=== PATIENT | female | born 2000 | race Caucasian/White ===

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

== ENCOUNTER 2018-04-06 15:03 | Observation (INO) ==
[2018-04-06] MEDS: NORMAL SALINE 1,000 ML IV ONE ×2 (15:45→16:46)
[2018-04-06] MEDS ORDERED: ADENOSINE 3 MG/ML DISP.SYRIN IV ONE ×2 (15:49)
[2018-04-06] MEDS ORDERED: MAGNESIUM SULFATE IN WATER 50 ML IV ONE (15:51)
[2018-04-06] MEDS ORDERED: ACETAMINOPHEN 500 MG TABLET PO ONE ×2 (16:02→16:03)
[2018-04-06 16:05] LABS: Hematocrit 34.4 % (37.0-47.0); Hemoglobin 11.6 gm/dL (12.5-16.0); Mean Cell Volume 88.9 fl (78-100); Mean Corpuscular Hgb Conc 33.7 g/dl (32-36); Mean Platelet Volume 9.2 fl (8-12.5); Neutrophil # 8.2 K/mm3 (1.3-6.0); Neutrophil % 88.6 % (42-75.0); Platelet Count 244 K/mm3 (150-450); Red Blood Count 3.87 M/mm3 (4.2-5.4); Red Cell Distribution Width 13.2 % (11.5-14.0); White Blood Count 9.2 K/mm3 (4.0-10.5)
[2018-04-06 16:27] LABS: ALT 26 U/L (19-67); AST 24 U/L (0-48); Albumin * 2.5 gm/dl (3.4-5.0); Alkaline Phosphatase * 153 U/L (50-170); Anion Gap 16.7 mmol/L (6.8-13.8); BUN/Creatinine Ratio 5.4 (9.0-21.6); Bilirubin, Total 0.4 mg/dL (0.0-1.1); Blood Urea Nitrogen 3 mg/dL (3-23); Ca. Corrected For Albumin 9.7 mg/dL (8.4-10.2); Calcium * 8.8 mg/dL (7.9-10.9); Carbon Dioxide 21.9 mmol/L (24-32.6); Chloride 104 mmol/L (97-106); Glucose * 84 mg/dL (70-110); Magnesium 1.3 mg/dL (1.2-2.8); Potassium 3.6 mmol/L (3.4-4.6); Sodium 139 mmol/L (132-142); Total Protein 6.6 gm/dL (6.2-8.2); Troponin I Less than 0.017 ng/mL (0.00-0.10)
[2018-04-06] MEDS ORDERED: NORMAL SALINE 1,000 ML IV ONE ×2 (16:43→17:47)
[2018-04-06 18:06] LABS: Urine Bilirubin Negative (NEGATIVE); Urine Ketone 50 mg/dL (NEGATIVE); Urine Nitrite Negative (NEGATIVE); Urine Protein Negative (NEGATIVE); Urine Urobilinogen Normal (NORMAL)
[2018-04-06 18:18] LABS: Urine Appearance Clear (CLEAR); Urine Bacteria TRACE; Urine Blood 5 /ul (NEGATIVE); Urine Color Yellow; Urine Mucus Moderate - 2+; Urine RBC 0-5 /hpf (0-5); Urine WBC 0-5 /hpf (0-5)
[2018-04-06] MEDS ORDERED: SULFAMETHOXAZOLE/TRIMETHOPRIM 1 TAB TABLET PO ONE (18:24)
--- NOTE | 2018-04-06 18:31 | ERNOTE ---
<Dl Paris - Last Filed: 04/06/18 19:47> Medical Problem HPI - General Chief Complaint: Nausea/Vomiting Time Seen by Provider: 04/06/18 15:25 Source: patient Exam Limitations: no limitations - Immun/Allergies/Home Medications Immunizations: IMMUNIZATION HX Immunizations Up to Date Yes History of Influenza Vaccine No Hx Pneumococcal Vaccination No Allergies/Adverse Reactions: Allergies No Known Allergies Allergy (Verified 04/06/18 16:16) Home Medications: HOME MEDICATIONS vitamin,calcium,elimfust-xgfb-ehhsl acid tablet 1 tab PO DAILY 11/08/17 [Last Taken Unknown] ferrous sulfate 325 mg (65 mg iron) tablet 325 mg PO DAILY #30 tab 03/06/18 [Last Taken Unknown] ascorbic acid (vitamin C) 500 mg capsule 500 mg PO DAILY cap 03/13/18 [Last Taken Unknown] acetaminophen 325 mg tablet 325 mg PO Q6H PRN 03/27/18 [Last Taken Unknown] calcium carbonate 200 mg calcium (500 mg) chewable tablet 400 mg PO DAILY tab 03/27/18 [Last Taken Unknown] melatonin 10 mg tablet 10 mg PO HS 03/27/18 [Last Taken Unknown] clindamycin HCl 150 mg capsule 150 mg PO TID #20 cap 04/06/18 [Last Taken Unknown] - History of Present History Narrative: Patient presents with a fever, rapidly elevated heart rate and feelings of nausea with vomiting. She states onset of the symptoms has been over the past hour, as she just had a cyst taken off her tailbone by the surgeon. Timing: constant Severity: moderate Review of Systems - Review of Systems Constitutional: Present: See HPI EYE: Present: no symptoms reported ENT: Present: no symptoms reported Respiratory: Present: no symptoms reported Cardiology: Present: palpitations Gastrointestinal/Abdominal: Present: no symptoms reported Genitourinary: Present: no symptoms reported Musculoskeletal: Present: no symptoms reported Skin: Present: no symptoms reported Neurological: Present: no symptoms reported Endocrine: Present: no symptoms reported Hematologic/Lymphatic: Present: no symptoms reported Psych: Present: no symptoms reported Medical History (Last Reviewed 04/06/18 @ 16:16 by Kenan Morris RN) Has received influenza vaccination in current influenza season (Acute) Onset Date: 03/13/18 Cellulitis (Acute) Abscess of gluteal cleft (Acute) Influenza vaccine refused (Acute) Onset Date: 12/06/17 Strep pharyngitis (Acute) Bleeding from the nose (Acute) Common cold (Acute) Constipation (Acute) Strep pharyngitis (Acute) Vomiting (Acute) Crush injury to finger (Acute) Pneumonia (Acute) Sinusitis (Acute) Abscess Onset Date: 01/03/18 Gluteal cleft Anemia Onset Date: 03/06/18 w/ Acne Onset Date: Unknown Anxiety Onset Date: Unknown Depression Onset Date: Unknown MRSA Abscess Onset Date: Unknown Herpes simplex Onset Date: 08/12/12 Surgical History: Surgical History (Last Reviewed 04/06/18 @ 16:16 by Kenan Morris RN) History of incision and drainage Onset Date: 03/27/1812/2017 gluteal cleft. 03/27/18 in ER-gluteal cleft History of neck surgery Onset Date: ~2005 Cyst removal Family History: Family History (Last Reviewed 04/06/18 @ 16:16 by Kenan Morris RN) Mother Alive and well Father Unknown family medical history Grandfather COPD (chronic obstructive pulmonary disease) Grandmother Cancer Cervical Cancer Diabetes Brain tumor Colostomy in place Complication d/t radiation therapy-Part of intestines killed Status post emergency tracheotomy for assistance in breathing Trachea collapsed d/t sepsis Brother Alive and well 2 brothers Social History: Preferred Language Swedish Do you have any catholic or No cultural preference? Smoking Status Never smoker Abuse History No History of abuse Psych History Hx of Anxiety,Hx of Depression Alcohol Use none Drug Use none (Last Updated 04/06/18 @ 12:15 by Fifi Christensen DO) No Social History Section defined Physical Exam - Physical Exam General Appearance: Present: wd/wn, alert, moderate distress Head Exam: Present: normal inspection, no evidence of injury Eye Exam: Normal inspection: bilateral, PERRL: bilateral Ears, Nose, Throat: Present: normal pharynx, dry mucous membranes Neck: Present: normal inspection, nontender Respiratory: Present: no respiratory distress, normal breath sounds, no accessory muscle use, chest nontender, lungs clear Cardiovascular/Chest: Present: no murmur, normal peripheral pulses, tachycardia Gastrointestinal/Abdominal: Present: normal bowel sounds, nontender, nondistended, soft, no organomegaly Rectal Exam: Present: deferred Back Exam: Present: normal inspection, normal range of motion Extremity Exam: Present: normal inspection, non-tender, no edema, normal range o f motion Neurological Exam: Present: alert, oriented, normal mood/affect Skin Exam: Present: normal color, warm/dry Lymphatic Exam: Present: no adenopathy Progress - Results and Orders Patient's Lab Results:: I have reviewed the patient's lab results. - Vital Signs Patient's Vital Signs:: I have reviewed the patient's vital signs. Vital Signs: Vital Signs 04/06/18 15:17 04/06/18 15:58 04/06/18 16:15 Temperature 36.8 C 38.8 C H Pulse Rate 175 H 149 H 150 H Respiratory Rate 24 H 25 H 23 H Blood Pressure 112/58 104/51 108/48 O2 Sat by Pulse Oximetry 98 99 98 04/06/18 16:34 04/06/18 16:45 04/06/18 17:39 Temperature Pulse Rate 124 H 138 H 124 H Respiratory Rate 21 H 17 18 Blood Pressure 92/30 107/46 124/57 O2 Sat by Pulse Oximetry 98 98 97 04/06/18 18:15 Temperature 37 C Pulse Rate 118 H Respiratory Rate 20 Blood Pressure 114/44 O2 Sat by Pulse Oximetry 96 - CT/Ultrasound CT/Ultrasound Narrative: CT of the chest was reviewed and was negative for PE - Progress/Reassessment Chief Complaint: Nausea/Vomiting - Transfer of Care Physician Sign Out: Dl Paris Receiving Physician: Prudence Stout Expected Disposition: Discharge Plan - Plan Plan: Patient is on her third liter of saline her heart rate has come down to approximately 115. She was also given 1 g of Tylenol and her fever broke and she feels much better. She has had a history of community-acquired MRSA so she is given 1 Bactrim DS. While she was and emergency department she had several contractions, so we will send her over to OB for an NST. Patient was also given 4 g of magnesium sulfate while she is in the emergency department. Departure Clinical Impression: Tachycardia, Hypovolemia, Pre-syncope Fever Qualifiers: Fever type: post-procedural Qualified Code(s): R50.82 - Postprocedural fever Qualifiers: Weeks of gestation: 32 weeks Qualified Code(s): Z3A.32 - 32 weeks gestation of - Departure Disposition: Still a patient Condition: Fair Referrals: Teresa Omalley, KO [Primary Care Provider] - <Prudence Stout - Last Filed: 04/06/18 21:28> Medical Problem HPI - Immun/Allergies/Home Medications Immunizations: IMMUNIZATION HX Immunizations Up to Date Yes History of Influenza Vaccine No Hx Pneumococcal Vaccination No Medical History (Last Reviewed 04/06/18 @ 16:16 by Kenan Morris RN) Has received influenza vaccination in current influenza season (Acute) Onset Date: 03/13/18 Cellulitis (Acute) Abscess of gluteal cleft (Acute) Influenza vaccine refused (Acute) Onset Date: 12/06/17 Strep pharyngitis (Acute) Bleeding from the nose (Acute) Common cold (Acute) Constipation (Acute) Strep pharyngitis (Acute) Vomiting (Acute) Crush injury to finger (Acute) Pneumonia (Acute) Sinusitis (Acute) Abscess Onset Date: 01/03/18 Gluteal cleft Anemia Onset Date: 03/06/18 w/ Acne Onset Date: Unknown Anxiety Onset Date: Unknown Depression Onset Date: Unknown MRSA Abscess Onset Date: Unknown Herpes simplex Onset Date: 08/12/12 Surgical History: Surgical History (Last Reviewed 04/06/18 @ 16:16 by Kenan Morris RN) History of incision and drainage Onset Date: 03/27/1812/2017 gluteal cleft. 03/27/18 in ER-gluteal cleft History of neck surgery Onset Date: ~2005 Cyst removal Family History: Family History (Last Reviewed 04/06/18 @ 16:16 by Kenan Morris RN) Mother Alive and well Father Unknown family medical history Grandfather COPD (chronic obstructive pulmonary disease) Grandmother Cancer Cervical Cancer Diabetes Brain tumor Colostomy in place Complication d/t radiation therapy-Part of intestines killed Status post emergency tracheotomy for assistance in breathing Trachea collapsed d/t sepsis Brother Alive and well 2 brothers Social History: Preferred Language Swedish Do you have any catholic or No cultural preference? Smoking Status Former smoker Abuse History No History of abuse Psych History Hx of Anxiety,Hx of Depression Alcohol Use none Drug Use none (Last Updated 04/06/18 @ 12:15 by Fifi Christensen DO) No Social History Section defined Progress - Vital Signs Vital Signs: Vital Signs 04/06/18 15:17 04/06/18 15:58 04/06/18 16:15 Temperature 36.8 C 38.8 C H Pulse Rate 175 H 149 H 150 H Respiratory Rate 24 H 25 H 23 H Blood Pressure 112/58 104/51 108/48 O2 Sat by Pulse Oximetry 98 99 98 04/06/18 16:34 04/06/18 16:45 04/06/18 17:39 Temperature Pulse Rate 124 H 138 H 124 H Respiratory Rate 21 H 17 18 Blood Pressure 92/30 107/46 124/57 O2 Sat by Pulse Oximetry 98 98 97 04/06/18 18:15 04/06/18 18:30 04/06/18 18:45 Temperature 37 C 37.5 C Pulse Rate 118 H 115 H 117 H Respiratory Rate 20 Blood Pressure 114/44 100/35 99/41 O2 Sat by Pulse Oximetry 96 99 98 04/06/18 19:00 04/06/18 19:15 04/06/18 19:27 Temperature Pulse Rate 120 H 118 H Respiratory Rate Blood Pressure 100/46 80/30 L 84/46 L O2 Sat by Pulse Oximetry 98 98 04/06/18 19:45 Temperature 37.6 C Pulse Rate 122 H Respiratory Rate 22 H Blood Pressure 109/45 O2 Sat by Pulse Oximetry 98 Plan - Plan Plan: I took over for Dr. Paris, patient is awaiting CT scan results, she has mild abdominal pain, she did have adenosine twice in ER. Patient was in PSVT. Patient will be admitted to Dr. Lowery for observation. She did receive three liters of IVF. She has a history of community acquired pneumonia one year ago, she did receive one dose of Bactrim due to cyst abscess on back that was drained. She is 32 weeks gestation and ultrasound is negative.
[2018-04-06] MEDS ORDERED: ACETAMINOPHEN 325 MG TABLET PO ONE (22:02)
[2018-04-06] MEDS ORDERED: CALCIUM CARBONATE 500 MG TAB.CHEW ONE (22:04)
[2018-04-06] MEDS: CALCIUM CARBONATE 500 MG TAB.CHEW PO SCH (22:07)
[2018-04-06] MEDS: NORMAL SALINE 1,000 ML IV PRN (22:45)
[2018-04-07] MEDS ORDERED: CALCIUM CARBONATE 500 MG TAB.CHEW PO PRN (02:15)
[2018-04-07] MEDS: ACETAMINOPHEN 325 MG TABLET PO PRN ×2 (04:52→11:10)
[2018-04-07 06:05] LABS: Hematocrit 28.2 % (37.0-47.0); Hemoglobin 9.5 gm/dL (12.5-16.0); Mean Cell Volume 88.4 fl (78-100); Mean Corpuscular Hemoglobin 29.8 pg (27-31); Mean Corpuscular Hgb Conc 33.7 g/dl (32-36); Mean Platelet Volume 9.2 fl (8-12.5); Neutrophil # 10.8 K/mm3 (1.3-6.0); Platelet Count 214 K/mm3 (150-450); Red Blood Count 3.19 M/mm3 (4.2-5.4); Red Cell Distribution Width 13.2 % (11.5-14.0); White Blood Count 12.1 K/mm3 (4.0-10.5)
[2018-04-07] MEDS: NORMAL SALINE 1,000 ML IV PRN ×2 (06:33→15:30)
[2018-04-07] MEDS: CALCIUM CARBONATE 500 MG TAB.CHEW PO SCH (08:17)
[2018-04-07] MEDS ORDERED: SULFAMETHOXAZOLE/TRIMETHOPRIM 1 TAB TABLET PO SCH (09:00)
--- NOTE | 2018-04-07 12:12 | CONS ---
- Reason for consultation (1) Abscess Date of Service: 04/07/18 HPI - General Source: patient, family, RN/MD, RN notes reviewed, old records Exam Limitations: no limitations - History of Present Illness Initial Comments: She had I&D of an abscess over the sacrum yesterday. Iodoform wick placed. Had chills and tachycardia later in the day and presented to ER. NST has been normal. Chest CT negative for PE. She had I&D in the same area last fall and again in February. The current opening is too small to allow easy wound care Modifying Factors - (Worsens): Reports: other - sitting Modifying Factors - (Improves): Reports: immobilization Associated Symptoms: fever/chills, other - tachycardia Allergies/Adverse Reactions: Allergies No Known Allergies Allergy (Verified 04/06/18 16:16) Home Medications: Home Medications Medication Instructions Recorded Last Taken 1 tab PO DAILY 11/08/17 Unknown vitamin,calcium,yeefxtir-zzjn-wcsdt acid tablet ferrous sulfate 325 mg (65 mg 325 mg PO DAILY #30 tab 03/06/18 Unknown iron) tablet ascorbic acid (vitamin C) 500 mg 500 mg PO DAILY cap 03/13/18 Unknown capsule acetaminophen 325 mg tablet 325 mg PO Q6H PRN 03/27/18 Unknown calcium carbonate 200 mg calcium 400 mg PO DAILY tab 03/27/18 Unknown (500 mg) chewable tablet melatonin 10 mg tablet 10 mg PO HS 03/27/18 Unknown clindamycin HCl 150 mg capsule 150 mg PO TID #20 cap 04/06/18 Unknown Procedures Drainage of Buttock Skin, External Approach (03/27/18) Removal of intraluminal foreign body from nose without incision (11/01/00) Medications - Medications Current Medications: Current Medications Acetaminophen (Tylenol) 650 mg PO Q6H PRN PRN Reason: Mild pain (pain scale 1-3) Stop: 05/07/18 04:44 Last Admin: 04/07/18 11:10 Dose: 650 mg Documented by: Calcium Carbonate/Glycine (Tums) 500 mg PO DAILY CORA Stop: 05/07/18 09:01 Last Admin: 04/07/18 08:17 Dose: 500 mg Documented by: Sodium Chloride (Sodium Chloride 0.9%) 1,000 mls @ 125 mls/hr IV .Q8H PRN PRN Reason: HYDRATION Stop: 05/06/18 21:43 Last Admin: 04/07/18 06:33 Dose: 125 mls/hr Documented by: Trimethoprim/Sulfamethoxazole (Bactrim Ds) 1 tab PO BID CORA; Protocol Stop: 05/07/18 09:01 Last Admin: 04/07/18 08:17 Dose: 1 tab Documented by: Review of Systems - Review of Systems Generalized/Overall Review: Present: Chills, Malaise EENTM: Present: No Symptoms Reported Respiratory: Absent: Shortness of Breath Cardiac: Present: Other - rapid heartrate Abdominal: Present: Other - discomfort from Genitourinary: Present: No Symptoms Reported Musculoskeletal: Present: No Symptoms Reported Neurological: Present: No Symptoms Reported Skin: Present: Other - acne and multiple areas of folliculitis. Pain over sacrum Physical Examination - Exam Vital Signs: Vital Signs - Last Taken Temp 37.0 C 04/07/18 10:14 Pulse 112 H 04/07/18 10:14 Resp 12 04/07/18 10:14 BP 108/47 04/07/18 10:14 Pulse Ox 97 04/07/18 10:14 O2 Oxygen Delivery Method Room Air Constitutional: Present: Alert, Oriented x3, Cooperative, Well nourished, Mild distress ENT Exam: Present: normal ENT inspection, other - poor dentition, Mallampati 3 airway Eye Exam: bilateral eye: normal inspection Neck: Present: full range of motion Breasts: Present: Exam deferred Respiratory: Present: normal breath sounds Cardiovascular/Chest: Present: normal peripheral pulses, regular rate, rhythm Abdomen: Present: other - , otherwise soft /Rectal: Present: Exam deferred Extremity: Present: normal range of motion, no pedal edema, no calf tenderness Skin Exam: Present: pallor, other - abscess in midline over sacrum (appears to be pilonidal cyst) Neurologic: Present: shopping centre manager II-XII nml as tested, no motor/sensory deficits Appearance: Present: appropriate appearance, appropriate insight Eye contact: Present: cooperative, good eye contact, normal speech Thoughts: Present: normal thought pattern - Results and Findings: Lab/Microbiology results last 24 hrs: Abnormal/Pending Laboratory Last 24 HRS 04/07/18 04/06/18 04/06/18 06:00 17:38 15:59 WBC 12.1 H D RBC 3.19 L Hgb 9.5 L Hct 28.2 L Immature Gran % (Auto) 0.80 H Immature Gran # (Auto) 0.10 H Neutrophils % 89.0 H Lymphocytes % 4.3 L Neutrophils # 10.8 H Lymphocytes # 0.52 L D-Dimer 7.00 H Carbon Dioxide Anion Gap Est GFR (Non-Af Amer) BUN/Creatinine Ratio Albumin Urine Blood 5 H Urine Mucus Moderate - 2+ H 04/06/18 04/06/18 15:59 15:59 WBC RBC 3.87 L Hgb 11.6 L Hct 34.4 L Immature Gran % (Auto) 0.50 H Immature Gran # (Auto) 0.05 H Neutrophils % 88.6 H Lymphocytes % 9.0 L Neutrophils # 8.2 H Lymphocytes # 0.83 L D-Dimer Carbon Dioxide 21.9 L Anion Gap 16.7 H Est GFR (Non-Af Amer) 148 H D BUN/Creatinine Ratio 5.4 L Albumin 2.5 L Urine Blood Urine Mucus - Assessments/Findings (1) Abscess Diagnosis(s): This may be a pilonidal abscess given the location and history of recurrence. the current opening is not sufficient to allow the cavity to be packed. Explained this to the patient and what would be involved in openning the area further under local anesthesia. Risks and benfits and expected future wound care explained. Questions answered to her apparent satisfaction and informed consent obtained for I&D of the abscess. Problem: Acute
--- NOTE | 2018-04-07 12:24 | HP ---
Chief Complaint - Chief Complaint Date of Service: 04/07/18 Time of Service: 12:14 Chief Complaint: tachycardia History of Present Illness: 17-year-old female presents with complaints of fever and elevated heart rate. Associated with symptoms of nausea and vomiting. She has a history of a lesion located that was her tailbone that was incised and drained 1 day prior and she had been started on Bactrim as outpatient. She was found to have SVT in the emergency department with heart rate in the 170s. She was given adenosine with good response. In the emergency department she received 4 g of magnesium sulfate. She was admitted for observation. Medical History (Last Reviewed 04/06/18 @ 23:00 by Tawana Mak RN) Has received influenza vaccination in current influenza season (Acute) Onset Date: 03/13/18 Cellulitis (Acute) Abscess of gluteal cleft (Acute) Influenza vaccine refused (Acute) Onset Date: 12/06/17 Strep pharyngitis (Acute) Bleeding from the nose (Acute) Common cold (Acute) Constipation (Acute) Strep pharyngitis (Acute) Vomiting (Acute) Crush injury to finger (Acute) Pneumonia (Acute) Sinusitis (Acute) Abscess Onset Date: 01/03/18 Gluteal cleft Anemia Onset Date: 03/06/18 w/ Acne Onset Date: Unknown Anxiety Onset Date: Unknown Depression Onset Date: Unknown MRSA Abscess Onset Date: Unknown Herpes simplex Onset Date: 08/12/12 Surgical History: Surgical History (Last Reviewed 04/06/18 @ 23:00 by Tawana Mak RN) History of incision and drainage Onset Date: 03/27/1812/2017 gluteal cleft. 03/27/18 in ER-gluteal cleft History of neck surgery Onset Date: ~2005 Cyst removal Family History: Family History (Last Reviewed 04/06/18 @ 23:00 by Tawana Mak RN) Mother Alive and well Father Unknown family medical history Grandfather COPD (chronic obstructive pulmonary disease) Grandmother Cancer Cervical Cancer Diabetes Brain tumor Colostomy in place Complication d/t radiation therapy-Part of intestines killed Status post emergency tracheotomy for assistance in breathing Trachea collapsed d/t sepsis Brother Alive and well 2 brothers Social History: Patient Lives/Resources Home Utilized Occupation [employer] Preferred Language Latvian Do you have any episcopalian or No cultural preference? Smoking Status Former smoker Have you smoked in the past 12 Yes months Abuse History No History of abuse Psych History Hx of Anxiety,Hx of Depression Alcohol Use none Drug Use none (Last Updated 04/06/18 @ 12:15 by Fifi Christensen DO) No Social History Section defined Review Of Systems (GEN) - Review of Systems Generalized/Overall Review: Present: Fever Respiratory: Absent: Shortness of Breath Cardiac: Absent: Chest Pain Abdominal: Present: Abdominal Pain Skin: Present: Lesions - Abscess sacral region. Misc: All systems neg except as marked Immunizations: IMMUNIZATION HX Immunizations Up to Date Yes History of Influenza Vaccine No Hx Pneumococcal Vaccination No Allergies/Adverse Reactions: Allergies Allergy/AdvReac Type Severity Reaction Status Date / Time No Known Allergies Allergy Verified 04/06/18 16:16 Home Medications: HOME MEDICATIONS vitamin,calcium,ylefsaze-xirt-uhaus acid tablet 1 tab PO DAILY 11/08/17 [Last Taken Unknown] ferrous sulfate 325 mg (65 mg iron) tablet 325 mg PO DAILY #30 tab 03/06/18 [Last Taken Unknown] ascorbic acid (vitamin C) 500 mg capsule 500 mg PO DAILY cap 03/13/18 [Last Taken Unknown] acetaminophen 325 mg tablet 325 mg PO Q6H PRN 03/27/18 [Last Taken Unknown] calcium carbonate 200 mg calcium (500 mg) chewable tablet 400 mg PO DAILY tab 03/27/18 [Last Taken Unknown] melatonin 10 mg tablet 10 mg PO HS 03/27/18 [Last Taken Unknown] clindamycin HCl 150 mg capsule 150 mg PO TID #20 cap 04/06/18 [Last Taken Unknown] Exam - Exam Vital Signs: Vital Signs - Last Taken Temp 37.0 C 04/07/18 10:14 Pulse 112 H 04/07/18 10:14 Resp 12 04/07/18 10:14 BP 108/47 04/07/18 10:14 Pulse Ox 97 04/07/18 10:14 Constitutional: Present: Alert, Oriented x3, Cooperative ENT Exam: Present: hearing grossly normal Neck: Present: supple, trachea midline. Absent: lymphadenopathy (R), lymphadenopathy (L) Back Exam: Present: other - Abscess sacral region. Packing in place. Nontender to palpation. Respiratory: Present: lungs clear, no respiratory distress, no accessory muscle use Cardiovascular/Chest: Present: normal peripheral pulses Peripheral Pulses: dorsalis-pedis (R): 2+, dorsalis-pedis (L): 2+ Abdomen: Present: Normal bowel sounds, soft, tender - Right lower quadrant Extremity: Present: no pedal edema Skin Exam: Present: normal color, warm/dry Eye contact: Present: cooperative Diagnostic Studies: Abnormal Lab Results 04/06/18 04/06/18 04/06/18 Range/Units 15:59 15:59 15:59 WBC (4.0-10.5) K/mm3 RBC 3.87 L (4.2-5.4) M/mm3 Hgb 11.6 L (12.5-16.0) gm/dL Hct 34.4 L (37.0-47.0) % Immature Gran % (Auto) 0.50 H (0.001-0.429) % Immature Gran # (Auto) 0.05 H (0.000-0.0310) K/mm3 Neutrophils % 88.6 H (42-75.0) % Lymphocytes % 9.0 L (20-51) % Neutrophils # 8.2 H (1.3-6.0) K/mm3 Lymphocytes # 0.83 L (1.5-3.5) k/mm3 D-Dimer 7.00 H (0.19-0.49) ug/mL Carbon Dioxide 21.9 L (24-32.6) mmol/L Anion Gap 16.7 H (6.8-13.8) mmol/L Est GFR (Non-Af Amer) 148 H D (60-130) mL/min BUN/Creatinine Ratio 5.4 L (9.0-21.6) Albumin 2.5 L (3.4-5.0) gm/dl Urine Blood (NEGATIVE) /ul Urine Mucus (NONE) 04/06/18 04/07/18 Range/Units 17:38 06:00 WBC 12.1 H D (4.0-10.5) K/mm3 RBC 3.19 L (4.2-5.4) M/mm3 Hgb 9.5 L (12.5-16.0) gm/dL Hct 28.2 L (37.0-47.0) % Immature Gran % (Auto) 0.80 H (0.001-0.429) % Immature Gran # (Auto) 0.10 H (0.000-0.0310) K/mm3 Neutrophils % 89.0 H (42-75.0) % Lymphocytes % 4.3 L (20-51) % Neutrophils # 10.8 H (1.3-6.0) K/mm3 Lymphocytes # 0.52 L (1.5-3.5) k/mm3 D-Dimer (0.19-0.49) ug/mL Carbon Dioxide (24-32.6) mmol/L Anion Gap (6.8-13.8) mmol/L Est GFR (Non-Af Amer) (60-130) mL/min BUN/Creatinine Ratio (9.0-21.6) Albumin (3.4-5.0) gm/dl Urine Blood 5 H (NEGATIVE) /ul Urine Mucus Moderate - 2+ H (NONE) Laboratory Results WBC 12.1 K/mm3 (4.0-10.5) H D 04/07/18 06:00 RBC 3.19 M/mm3 (4.2-5.4) L 04/07/18 06:00 Hgb 9.5 gm/dL (12.5-16.0) L 04/07/18 06:00 Hct 28.2 % (37.0-47.0) L 04/07/18 06:00 MCV 88.4 fl (78-100) 04/07/18 06:00 MCH 29.8 pg (27-31) 04/07/18 06:00 MCHC 33.7 g/dl (32-36) 04/07/18 06:00 RDW 13.2 % (11.5-14.0) 04/07/18 06:00 Plt Count 214 K/mm3 (150-450) 04/07/18 06:00 MPV 9.2 fl (8-12.5) 04/07/18 06:00 Immature Gran % (Auto) 0.80 % (0.001-0.429) H 04/07/18 06:00 Immature Gran # (Auto) 0.10 K/mm3 (0.000-0.0310) H 04/07/18 06:00 Neutrophils % 89.0 % (42-75.0) H 04/07/18 06:00 Lymphocytes % 4.3 % (20-51) L 04/07/18 06:00 Monocytes % 5.6 % (0.0-9) 04/07/18 06:00 Eosinophils % 0.1 % (0.0-3.0) 04/07/18 06:00 Basophils % 0.2 % (0.0-1.0) 04/07/18 06:00 Nucleated RBC % 0.0 k/mm3 (0-1) 04/07/18 06:00 Neutrophils # 10.8 K/mm3 (1.3-6.0) H 04/07/18 06:00 Lymphocytes # 0.52 k/mm3 (1.5-3.5) L 04/07/18 06:00 Monocytes # 0.7 k/mm3 (0.0-1.0) 04/07/18 06:00 Eosinophils # 0.0 k/mm3 (0.0-0.7) 04/07/18 06:00 Absolute Basophils 0.0 k/mm3 (0.0-0.1) 04/07/18 06:00 D-Dimer 7.00 ug/mL (0.19-0.49) H 04/06/18 15:59 Sodium 139 mmol/L (132-142) 04/06/18 15:59 Plasma Sodium 139 mmol/L (130-142) 04/06/18 15:59 Potassium 3.6 mmol/L (3.4-4.6) 04/06/18 15:59 Chloride 104 mmol/L (97-106) 04/06/18 15:59 Carbon Dioxide 21.9 mmol/L (24-32.6) L 04/06/18 15:59 Anion Gap 16.7 mmol/L (6.8-13.8) H 04/06/18 15:59 BUN 3 mg/dL (3-23) 04/06/18 15:59 Creatinine 0.56 mg/dL (0.4-1.4) 04/06/18 15:59 Est GFR (Non-Af Amer) 148 mL/min (60-130) H D 04/06/18 15:59 BUN/Creatinine Ratio 5.4 (9.0-21.6) L 04/06/18 15:59 Random Glucose 84 mg/dL (70-110) 04/06/18 15:59 Lactic Acid, Venous 1.7 mmol/L (0.4-2.0) 04/06/18 15:39 Calcium 8.8 mg/dL (7.9-10.9) 04/06/18 15:59 Calcium Adj for Albumin 9.7 mg/dL (8.4-10.2) 04/06/18 15:59 Magnesium 1.3 mg/dL (1.2-2.8) 04/06/18 15:59 Total Bilirubin 0.4 mg/dL (0.0-1.1) 04/06/18 15:59 AST 24 U/L (0-48) 04/06/18 15:59 ALT 26 U/L (19-67) 04/06/18 15:59 Alkaline Phosphatase 153 U/L (50-170) 04/06/18 15:59 Troponin I Less than 0.017 ng/mL (0.00-0.10) 04/06/18 15:59 Total Protein 6.6 gm/dL (6.2-8.2) 04/06/18 15:59 Albumin 2.5 gm/dl (3.4-5.0) L 04/06/18 15:59 Urine Color Yellow 04/06/18 17:38 Urine Appearance Clear (CLEAR) 04/06/18 17:38 Urine pH 6.0 pH (5.0-7.0) 04/06/18 17:38 Ur Specific [place] 1.020 SP.GR. (1.005-1.010) 04/06/18 17:38 Urine Protein Negative mg/dL (NEGATIVE) 04/06/18 17:38 Urine Glucose (UA) Negative mg/dL (NEGATIVE) 04/06/18 17:38 Urine Ketones 50 mg/dL (NEGATIVE) 04/06/18 17:38 Urine Blood 5 /ul (NEGATIVE) H 04/06/18 17:38 Urine Nitrate Negative (NEGATIVE) 04/06/18 17:38 Urine Bilirubin Negative mg/dl (NEGATIVE) 04/06/18 17:38 Urine Urobilinogen Normal EU/dl (NORMAL) 04/06/18 17:38 Ur Leukocyte Esterase Negative /ul (NEGATIVE) 04/06/18 17:38 Urine RBC 0-5 /hpf (0-5) 04/06/18 17:38 Urine WBC 0-5 /hpf (0-5) 04/06/18 17:38 Ur Epithelial Cells 0-5 /hpf (0-5) 04/06/18 17:38 Urine Bacteria Trace (NONE) 04/06/18 17:38 Urine Mucus Moderate - 2+ (NONE) H 04/06/18 17:38 Urine Culture Comments No culture indicated 04/06/18 17:38 Group A Strep Rapid Negative (NEGATIVE) 04/06/18 16:04 Assessment/Plan - Narrative Narrative: 17-year-old female presents status post I&D 1 day prior with complaints of fever and fast heart rate. She was found to be in SVT received 4 g of magnesium and adenosine in the emergency department. She was admitted for observation. Surgery was consulted and determined that she would benefit from opening up of the lesion and allowing for further drainage. Will was consulted as well and determined that the baby was stable. - Assessment/Plan (1) SVT (supraventricular tachycardia) Assessment: She continues to have tachycardia especially with ambulation. Surgery has been consulted and Dr. Farrar believes that she has a pilonidal abscess that needs to be opened and further drained. He will take her for the procedure today. Problem: Acute (2) Abdominal pain Assessment: [facility] was consulted and they believe that the is stable. Etiology is unclear, continue to monitor. Problem: Acute Qualifiers: Abdominal location: right lower quadrant Qualified Code(s): R10.31 - Right lower quadrant pain (3) Fever Assessment: Possibly secondary to the pilonidal abscess continue Bactrim and she will go for I&D with Dr. Farrar today. Problem: Acute Qualifiers: Fever type: post-procedural Qualified Code(s): R50.82 - Postprocedural fever
[2018-04-07] MEDS ORDERED: MUPIROCIN 22 APPL TUBE TP ONE (13:03)
[2018-04-07] MEDS ORDERED: BUPIVACAINE HCL/EPINEPHRINE 50 ML VIAL IJ ONE (13:03)
--- NOTE | 2018-04-07 13:49 | OR ---
Operative Report - Dictated Report Narrative: OPERATIVE REPORT DATE OF OPERATION: 04/07/2018 PREOPERATIVE DIAGNOSIS: Pilonidal abscess POSTOPERATIVE DIAGNOSIS: Pilonidal sinus with abscess OPERATION: Excision of pilonidal sinus with debridement of abscess cavity and packing SURGEON: Lacie Farrar MD ANESTHESIA: 0.5% Marcaine with epinephrine INDICATIONS FOR PROCEDURE: The patient is a 17-year-old female who developed an abscess over the sacrum in the gluteal cleft. This was incised and drained yesterday. She developed chills and tachycardia and was placed in observation. The initial incision for drainage is inadequate for complete exposure of the abscess, and she is brought for incision and debridement of the abscess FINDINGS: Pilonidal sinus with underlying abscess cavity NARRATIVE OF PROCEDURE: The patient was identified preoperatively, the surgical site was identified, and prior to the administration of anesthetic a multidisciplinary timeout was observed. The patient was placed in the semisupine position and the old dressing and packing removed. The sacral area was then prepped with Betadine solution and isolated with 4 sterile towels. The remainder the patient was covered with sterile disposable drapes. Inspection of the area revealed a pilonidal sinus in the midline. The 4 mm incision was cephalad and lateral to this on the left side. The area was infiltrated with 0.5% Marcaine with epinephrine. The pilonidal sinus was then marked. The abscess cavity was explored with a hemostat and found to track to the pilonidal sinus. An elliptical skin incision was made to include the pilonidal sinus and the previously made incision. The tissue was excised and submitted to pathology. The cavity was then again explored. It was found to be completely unroofed. Several small bleeding vessels were coagulated. The wall of the abscess cavity was then curetted. The area was irrigated with saline. Hemostasis appeared complete. No additional abscess extensions were identified. The cavity was then packed with 2 inch iodoform gauze. A dressing of Mepilex border and Medipore tape was applied. The operative procedure was terminated at this point. All counts were correct. There was minimal blood loss. The patient tolerated the procedure well without complication. She was transferred back to the floor awake and in stable condition. Plan at this time is for her to be discharged home when she is judged to be medically stable. A return office appointment will be made for 04/10/2018 for dressing change. The patient has supplies at home to change the cover dressing if needed. She may continue the previously prescribed antibiotic. Reviewed and electronically signed
--- NOTE | 2018-04-07 14:41 | CONS ---
[facility] - General Date of Service: 04/07/18 Narrative: 17 yo female with 32 3/7wks IUP complicated by unexplained oligohydramnios admitted to [facility] for uncontrolled tachycardia. Patient presented last pm to ER a few hours after having a "cyst" on the skin of her tailbone I&D'd in general surgeon's office, complaining of nausea, chills, pain, and fast heartrate with palpitations. She received a work up in the ER for PE, PTL, sepsis, and SVT. Per ER physician, the spiral CT was inconclusive but labs and clinical impression were reassuring, contractions resolved with magnesium 4g IV, labs did not support a clinical picture of sepsis, and EKG revealed sinus tachycardia which resolved with 3 liters of IV LR. The ER doctor asked me yesterday late afternoon if it would be OK to give one of my patients adenosine for SVT. Later that evening I was called by one of the OB nurses regarding an ER request for a NST to be done on a patient there who had recently received magnesium 4g IV. I contacted the ER physician to get more details, only to find out that this was the same patient he had talked to me about earlier in the day. He informed me she was much better and thought she was OK to send home. I told him from an OB standpoint I was OK with discharge if he thought she was medically stable and her NST was reactive with no signs of PTL. I received a call at 0530 this am notifiying me of patient's admission and my consultation on patient. She was admitted at [facility] a couple months ago for possible appendicitis but was discharged after s/s resolved after receiving a short course if IV antibiotics. Source: patient, RN/MD, old records Exam Limitations: no limitations - History of Present Illness Timing/Duration: 4-6 hours Severity: moderate Associated Symptoms: denies symptoms - this am. Complained yesterday of nausea, fever/chills, malaise, fast heart rate with palpitations. Allergies/Adverse Reactions: Allergies No Known Allergies Allergy (Verified 04/06/18 16:16) Home Medications: Home Medications Medication Instructions Recorded Last Taken 1 tab PO DAILY 11/08/17 Unknown vitamin,calcium,xjfeovoe-eija-cipib acid tablet ferrous sulfate 325 mg (65 mg 325 mg PO DAILY #30 tab 03/06/18 Unknown iron) tablet ascorbic acid (vitamin C) 500 mg 500 mg PO DAILY cap 03/13/18 Unknown capsule acetaminophen 325 mg tablet 325 mg PO Q6H PRN 03/27/18 Unknown calcium carbonate 200 mg calcium 400 mg PO DAILY tab 03/27/18 Unknown (500 mg) chewable tablet melatonin 10 mg tablet 10 mg PO HS 03/27/18 Unknown clindamycin HCl 150 mg capsule 150 mg PO TID #20 cap 04/06/18 Unknown Date of Service: 04/07/18 - also last pm Procedures NST (04/06/18 and 04/07/18) Drainage of Buttock Skin, External Approach (03/27/18) Removal of intraluminal foreign body from nose without incision (11/01/00) Medications - Medications Current Medications: Current Medications Acetaminophen (Tylenol) 650 mg PO Q6H PRN PRN Reason: Mild pain (pain scale 1-3) Stop: 05/07/18 04:44 Last Admin: 04/07/18 11:10 Dose: 650 mg Documented by: Calcium Carbonate/Glycine (Tums) 500 mg PO DAILY [facility] Stop: 05/07/18 09:01 Last Admin: 04/07/18 08:17 Dose: 500 mg Documented by: Sodium Chloride (Sodium Chloride 0.9%) 1,000 mls @ 125 mls/hr IV .Q8H PRN PRN Reason: HYDRATION Stop: 05/06/18 21:43 Last Admin: 04/07/18 06:33 Dose: 125 mls/hr Documented by: Trimethoprim/Sulfamethoxazole (Bactrim Ds) 1 tab PO BID [facility]; Protocol Stop: 05/07/18 09:01 Last Admin: 04/07/18 08:17 Dose: 1 tab Documented by: Review of Systems - Review of Systems Generalized/Overall Review: Present: Malaise EENTM: Present: No Symptoms Reported Respiratory: Present: No Symptoms Reported Cardiac: Present: No Symptoms Reported Abdominal: Present: Abdominal Pain - occasional sharp pain under right rib extending to back and lower abdomen Genitourinary: Present: No Symptoms Reported Musculoskeletal: Present: No Symptoms Reported Neurological: Present: No Symptoms Reported Skin: Present: No Symptoms Reported Endocrine: Present: No Symptoms Reported Physical Examination - Exam Vital Signs: Vital Signs - Last Taken Temp 36.6 C 04/07/18 13:41 Pulse 103 H 04/07/18 13:41 Resp 17 04/07/18 13:41 BP 106/46 04/07/18 13:41 Pulse Ox 98 04/07/18 13:41 O2 Oxygen Delivery Method Room Air Constitutional: Present: Alert, Oriented x3, Cooperative, Somnolent ENT Exam: Present: hearing grossly normal Breasts: Present: Exam deferred Respiratory: Present: no respiratory distress Cardiovascular/Chest: Present: no edema, tachycardia Abdomen: Present: soft, nontender, no rebound tenderness /Rectal: Present: Exam deferred Extremity: Present: no pedal edema, no calf tenderness Skin Exam: Present: normal color, warm/dry, no cyanosis Neurologic: Present: normal mood/affect, oriented x 3 Appearance: Present: appropriate appearance, appropriate insight Eye contact: Present: cooperative, good eye contact Thoughts: Present: normal thought pattern - Results and Findings: Lab/Microbiology results last 24 hrs: Abnormal/Pending Laboratory Last 24 HRS 04/07/18 04/06/18 04/06/18 06:00 17:38 15:59 WBC 12.1 H D RBC 3.19 L Hgb 9.5 L Hct 28.2 L Immature Gran % (Auto) 0.80 H Immature Gran # (Auto) 0.10 H Neutrophils % 89.0 H Lymphocytes % 4.3 L Neutrophils # 10.8 H Lymphocytes # 0.52 L D-Dimer 7.00 H Carbon Dioxide Anion Gap Est GFR (Non-Af Amer) BUN/Creatinine Ratio Albumin Urine Blood 5 H Urine Mucus Moderate - 2+ H 04/06/18 04/06/18 15:59 15:59 WBC RBC 3.87 L Hgb 11.6 L Hct 34.4 L Immature Gran % (Auto) 0.50 H Immature Gran # (Auto) 0.05 H Neutrophils % 88.6 H Lymphocytes % 9.0 L Neutrophils # 8.2 H Lymphocytes # 0.83 L D-Dimer Carbon Dioxide 21.9 L Anion Gap 16.7 H Est GFR (Non-Af Amer) 148 H D BUN/Creatinine Ratio 5.4 L Albumin 2.5 L Urine Blood Urine Mucus - Assessments/Findings (1) Tachycardia Diagnosis(s): Patient appears to be stable from an OB standpoint. Dr. Farrar discussed with me the plan to take patient back to OR and I&D abscess under local anesthesia. NST pre/post procedure was reactive with no decelerations or contractions. She is cleared from an OB standpoint. Would like to see her in office within the next few days. Please feel free to call me with any questions or concerns. Problem: Acute (2) Abscess Problem: Acute (3) Fever Problem: Acute Qualifiers: Fever type: post-procedural Qualified Code(s): R50.82 - Postprocedural fever (4) with 32 completed weeks gestation Problem: Acute (5) Oligohydramnios in [place] in third trimester Problem: Acute
[2018-04-07 16:57] VITALS: BP 112/59
--- NOTE | 2018-04-07 17:04 | DS ---
(1) Tachycardia Diagnosis(s): Improved after I&D of pilonidal abscess. Problem: Acute (2) SVT (supraventricular tachycardia) Diagnosis(s): Resolved Problem: Resolved (3) Abdominal pain Diagnosis(s): Right lower quadrant pain may have been secondary to an cyst per [facility]. No further workup needed at this time. She can follow-up with [facility] as an outpatient. Problem: Acute Qualifiers: Abdominal location: right lower quadrant Qualified Code(s): R10.31 - Right lower quadrant pain (4) Fever Diagnosis(s): Resolved after incision and drainage of pilonidal abscess. Problem: Resolved Qualifiers: Fever type: post-procedural Qualified Code(s): R50.82 - Postprocedural fever Description of Stay: 17-year-old female presents with complaints of fever and tachycardia. She was found to be in SVT in the emergency department and was given adenosine. She complained of right lower quadrant abdominal pain and [facility] was consulted. They determined that her pain may be secondary to assist she can follow-up with them on an outpatient basis. Surgery was consulted for a pilonidal abscess on her gluteal cleft, she was taking for an incision and drainage. He will follow- up with Dr. Farrar in the office on April 10, 2018 for repacking of the wound. Procedures Performed: see notes below - Incision and drainage of pilonidal cyst Results and Findings: Pending Mircobiology Results 04/06/18 15:59 Blood Blood Culture - Preliminary NO GROWTH 24 HOURS 04/06/18 15:59 Blood Blood Culture - Preliminary NO GROWTH 24 HOURS Lab Pending Results 04/06/18 15:39: Lactic Acid, Venous 1.7 04/06/18 15:59: WBC 9.2, RBC 3.87 L, Hgb 11.6 L, Hct 34.4 L, MCV 88.9, MCH 30.0, MCHC 33.7, RDW 13.2, Plt Count 244, MPV 9.2, Immature Gran % (Auto) 0.50 H, Immature Gran # (Auto) 0.05 H, Neutrophils % 88.6 H, Lymphocytes % 9.0 L, Monocytes % 1.8, Eosinophils % 0.0, Basophils % 0.1, Nucleated RBC % 0.0, Neutrophils # 8.2 H, Lymphocytes # 0.83 L, Monocytes # 0.2, Eosinophils # 0.0, Absolute Basophils 0.0 04/06/18 15:59: Sodium 139, Plasma Sodium 139, Potassium 3.6, Chloride 104, Carbon Dioxide 21.9 L, Anion Gap 16.7 H, BUN 3, Creatinine 0.56, Est GFR (Non-Af Amer) 148 H D, BUN/Creatinine Ratio 5.4 L, Random Glucose 84, Calcium 8.8, Calcium Adj for Albumin 9.7, Magnesium 1.3, Total Bilirubin 0.4, AST 24, ALT 26, Alkaline Phosphatase 153, Troponin I Less than 0.017, Total Protein 6.6, Albumin 2.5 L 04/06/18 15:59: D-Dimer 7.00 H 04/06/18 16:04: Group A Strep Rapid Negative 04/06/18 17:38: Urine Color Yellow, Urine Appearance Clear, Urine pH 6.0, Ur Specific [place] 1.020, Urine Protein Negative, Urine Glucose (UA) Negative, Urine Ketones 50, Urine Blood 5 H, Urine Nitrate Negative, Urine Bilirubin Negative, Urine Urobilinogen Normal, Ur Leukocyte Esterase Negative, Urine RBC 0-5, Urine WBC 0-5, Ur Epithelial Cells 0-5, Urine Bacteria Trace, Urine Mucus Moderate - 2+ H, Urine Culture Comments No culture indicated 04/07/18 06:00: WBC 12.1 H D, RBC 3.19 L, Hgb 9.5 L, Hct 28.2 L, MCV 88.4, MCH 29.8, MCHC 33.7, RDW 13.2, Plt Count 214, MPV 9.2, Immature Gran % (Auto) 0.80 H, Immature Gran # (Auto) 0.10 H, Neutrophils % 89.0 H, Lymphocytes % 4.3 L, Monocytes % 5.6, Eosinophils % 0.1, Basophils % 0.2, Nucleated RBC % 0.0, Neutrophils # 10.8 H, Lymphocytes # 0.52 L, Monocytes # 0.7, Eosinophils # 0.0, Absolute Basophils 0.0 Discharge Location: Home Disposition: Home self-care Condition: Fair Discharge Activity: Activity as tolerated Discharge Diet: General/regular food Referrals: Teresa Omalley FNP [Primary Care Provider] - Problem Oriented Discharge Instructions to Patient/Family: Sinus Tachycardia, Incision and Drainage, Care After Additional Patient Instructions (free text): Follow up Appt 04/10/18 at 4:[address] Farrar. Complete Home Medications List: Complete Home Medication List: vitamin,calcium,fevxogux-tqyw-ohfuh acid tablet 1 tab PO DAILY 11/08/17 ferrous sulfate 325 mg (65 mg iron) tablet 325 mg PO DAILY #30 tab 03/06/18 ascorbic acid (vitamin C) 500 mg capsule 500 mg PO DAILY cap 03/13/18 acetaminophen 325 mg tablet 325 mg PO Q6H PRN 03/27/18 calcium carbonate 200 mg calcium (500 mg) chewable tablet 400 mg PO DAILY tab 03/27/18 melatonin 10 mg tablet 10 mg PO HS 03/27/18 clindamycin HCl 150 mg capsule 150 mg PO TID #20 cap 04/06/18
== END 2018-04-07 17:17 | disposition home or self-care (01) ==
LOC: ER 15:03 → MS 15:03
PROVIDERS: ADMIT Internal Medicine; ATTEND Internal Medicine
DX: Z3A.33 33 weeks gestation of pregnancy; L05.01 Pilonidal cyst with abscess; O41.03X0 Oligohydramnios, third trimester, not applicable or unspecified; I97.191 Other postprocedural cardiac functional disturbances following other surgery; I47.1 Supraventricular tachycardia; R50.9 Fever, unspecified; R10.31 Right lower quadrant pain
CPT/HCPCS: 36415; 71275; 76815; 80053; 81001; 83605; 83735; 84484; 85025; 85379; 87040; 87081; 87430; 88304; 93005; 96361; 96365; 96375; 96376; 99285; G0378

== ENCOUNTER 2018-05-23 00:01 | Inpatient (IN) ==
[2018-05-23] MEDS ORDERED: OXYTOCIN/DEXTROSE 5%-WATER 30 UNITS/500 ML BAG IV ONE ×2 (00:13→18:00)
[2018-05-23 00:39] LABS: Cocaine Ur Negative (NEGATIVE); Urine Barbiturate Negative (NEGATIVE); Urine Benzodiazepines Negative (NEGATIVE); Urine Opiates Negative (NEGATIVE); Urine PCP Negative (NEGATIVE); Urine THC Negative (NEGATIVE)
[2018-05-23] MEDS: DEXTROSE 5%-LACTATED RINGERS 1,000 ML IV PRN ×2 (01:18→11:59)
[2018-05-23] MEDS ORDERED: ACETAMINOPHEN 325 MG TABLET PO ONE ×2 (05:07→22:05)
[2018-05-23 05:51] LABS: Urine Bilirubin Negative (NEGATIVE); Urine Blood Negative /ul (NEGATIVE); Urine Ketone Negative (NEGATIVE); Urine Nitrite Negative (NEGATIVE); Urine Protein Negative (NEGATIVE); Urine Specific Gravity 1.025 SP.GR. (1.005-1.010); Urine Urobilinogen Normal (NORMAL); Urine pH 7.5 pH (5.0-7.0)
[2018-05-23 05:56] LABS: Urine Color Yellow
[2018-05-23 05:58] LABS: Urine Appearance Clear (CLEAR); Urine Bacteria 1+; Urine RBC None Seen /hpf (0-5); Urine WBC 0-5 /hpf (0-5)
--- NOTE | 2018-05-23 07:32 | HP ---
Chief Complaint - Chief Complaint Date of Service: 05/23/18 Time of Service: 07:14 Chief Complaint: induction of labor for oligohydramnios History of Present Illness: 18 yo at 39 wks admitted for induction of labor due to low fluid. This complicated by anxiety/depression, MRSA positive pilonidal cyst abscess, SGA with oligohydramnios. Rh positive Rubella immune GBS negative Medical History (Last Reviewed 05/23/18 @ 07:20 by Dante Felix DO) Has received influenza vaccination in current influenza season (Acute) Onset Date: 03/13/18 Cellulitis (Acute) Abscess of gluteal cleft (Acute) Influenza vaccine refused (Acute) Onset Date: 12/06/17 Strep pharyngitis (Acute) Bleeding from the nose (Acute) Common cold (Acute) Constipation (Acute) Strep pharyngitis (Acute) Vomiting (Acute) Crush injury to finger (Acute) Pneumonia (Acute) Sinusitis (Acute) Abscess Onset Date: 01/03/18 Gluteal cleft Anemia Onset Date: 03/06/18 w/ Acne Onset Date: Unknown Anxiety Onset Date: Unknown Depression Onset Date: Unknown MRSA Abscess Onset Date: Unknown Herpes simplex Onset Date: 08/12/12 Surgical History: Surgical History (Last Reviewed 05/23/18 @ 07:20 by Dante Felix DO) History of excision of pilonidal cyst Onset Date: 04/07/18 Charan History of incision and drainage Onset Date: 03/27/1812/2017 gluteal cleft. 03/27/18 in ER-gluteal cleft History of neck surgery Onset Date: ~2005 Cyst removal Family History: Family History (Last Reviewed 05/23/18 @ 07:20 by Dante Felix DO) Mother Alive and well Father Unknown family medical history Grandfather COPD (chronic obstructive pulmonary disease) Grandmother Cancer Cervical Cancer Diabetes Brain tumor Colostomy in place Complication d/t radiation therapy-Part of intestines killed Status post emergency tracheotomy for assistance in breathing Trachea collapsed d/t sepsis Brother Alive and well 2 brothers Social History: Preferred Language French Smoking Status Former smoker Abuse History No History of abuse Psych History Hx of Anxiety,Hx of Depression (Last Updated 05/18/18 @ 13:33 by Dante Felix DO) No Social History Section defined Review Of Systems (GEN) - Review of Systems Generalized/Overall Review: Present: No Symptoms Reported EENTM: Present: No Symptoms Reported Respiratory: Present: No Symptoms Reported Cardiac: Present: No Symptoms Reported Abdominal: Present: No Symptoms Reported Genitourinary: Present: No Symptoms Reported Musculoskeletal: Present: No Symptoms Reported Neurological: Present: No Symptoms Reported Skin: Present: No Symptoms Reported Endocrine: Present: No Symptoms Reported Immunizations: IMMUNIZATION HX Immunizations Up to Date Yes History of Influenza Vaccine No Hx Pneumococcal Vaccination No Allergies/Adverse Reactions: Allergies Allergy/AdvReac Type Severity Reaction Status Date / Time No Known Allergies Allergy Verified 05/23/18 00:23 Home Medications: HOME MEDICATIONS vitamin,calcium,rpstfvcf-sqwk-mmcrj acid tablet 1 tab PO DAILY 11/08/17 [Last Taken Unknown] ferrous sulfate 325 mg (65 mg iron) tablet 325 mg PO DAILY #30 tab 03/06/18 [Last Taken Unknown] ascorbic acid (vitamin C) 500 mg capsule 500 mg PO DAILY cap 03/13/18 [Last Taken Unknown] acetaminophen 325 mg tablet 325 mg PO Q6H PRN 03/27/18 [Last Taken Unknown] calcium carbonate 200 mg calcium (500 mg) chewable tablet 400 mg PO DAILY tab 03/27/18 [Last Taken Unknown] melatonin 10 mg tablet 10 mg PO HS 03/27/18 [Last Taken Unknown] Exam - Exam Vital Signs: Vital Signs - Last Taken Temp 37.0 C 05/23/18 00:14 Pulse 94 05/23/18 00:14 Resp 22 H 05/23/18 00:14 BP 143/80 H 05/23/18 00:14 Pulse Ox 98 05/23/18 00:14 Constitutional: Present: Alert, Oriented x3, Cooperative, No distress ENT Exam: Present: hearing grossly normal Breasts: Present: Exam deferred Respiratory: Present: lungs clear, no respiratory distress Cardiovascular/Chest: Present: regular rate, rhythm, no edema Abdomen: Present: soft, nontender, no rebound tenderness, other - gravid /Rectal: Present: Other - cervix FT/80/-3 Extremity: Present: no pedal edema, no calf tenderness Skin Exam: Present: normal color, warm/dry, no cyanosis Neurologic: Present: normal mood/affect, oriented x 3 Appearance: Present: appropriate appearance Eye contact: Present: cooperative, good eye contact Thoughts: Present: normal thought pattern Diagnostic Studies: Abnormal Lab Results 05/23/18 Range/Units 00:22 Ur Epithelial Cells 5-10 H (0-5) /hpf Calcium Oxalate Crystal Few - 1+ H (NONE) /hpf Urine Bacteria 1+ H (NONE) Laboratory Results Urine Color Yellow 05/23/18 00:22 Urine Appearance Clear (CLEAR) 05/23/18 00:22 Urine pH 7.5 pH (5.0-7.0) 05/23/18 00:22 Ur Specific [place] 1.025 SP.GR. (1.005-1.010) 05/23/18 00:22 Urine Protein Negative mg/dL (NEGATIVE) 05/23/18 00:22 Urine Glucose (UA) Negative mg/dL (NEGATIVE) 05/23/18 00:22 Urine Ketones Negative mg/dL (NEGATIVE) 05/23/18 00:22 Urine Blood Negative /ul (NEGATIVE) 05/23/18 00:22 Urine Nitrate Negative (NEGATIVE) 05/23/18 00:22 Urine Bilirubin Negative mg/dl (NEGATIVE) 05/23/18 00:22 Urine Urobilinogen Normal EU/dl (NORMAL) 05/23/18 00:22 Ur Leukocyte Esterase Negative /ul (NEGATIVE) 05/23/18 00:22 Urine RBC None seen /hpf (0-5) 05/23/18 00:22 Urine WBC 0-5 /hpf (0-5) 05/23/18 00:22 Ur Epithelial Cells 5-10 /hpf (0-5) H 05/23/18 00:22 Calcium Oxalate Crystal Few - 1+ /hpf (NONE) H 05/23/18 00:22 Urine Bacteria 1+ (NONE) H 05/23/18 00:22 Urine Opiates Screen Negative (NEGATIVE) 05/23/18 00:22 Barbiturate Screen Negative (NEGATIVE) 05/23/18 00:22 Ur Phencyclidine Scrn Negative (NEGATIVE) 05/23/18 00:22 Urine Amphetamine Negative (NEGATIVE) 05/23/18 00:22 U Benzodiazepines Scrn Negative (NEGATIVE) 05/23/18 00:22 Urine Cocaine Screen Negative (NEGATIVE) 05/23/18 00:22 Urine Marijuana (THC) Negative (NEGATIVE) 05/23/18 00:22 Assessment/Plan - Assessment/Plan (1) [place]oh[place]ios [place] in third trimester Assessment: Admit for induction of labor. Will use pitocin and scott bulb instead of cytotec due to inability to stop tachsytole in patient high risk for decelerations due to low PAUL. Epidural PRN. Problem: Acute
--- NOTE | 2018-05-23 07:35 | PN ---
Progess Note - Interim Date: 05/23/18 Time: 07:32 Narrative: 05/23/18 07:32 Patient not feeling contractions much. AFVSS, BPs normal since admission FHT 120, good BTBV, no decelerations, good accelerations Ctxs q 2-3 on pitocin 16 mu/min Cvx FT/80/-3, cephalic Impression: IUP, oligo Plan: Buckley bulb placed in cervix. Will decrease pitocin to 12 mu/min. Continue present plan.
[2018-05-23] MEDS: RINGER'S SOLUTION,LACTATED 1,000 ML IV ONE (07:52)
[2018-05-23] MEDS ORDERED: ONDANSETRON HCL/PF 2 MG/ML VIAL IV PRN (07:57)
[2018-05-23] MEDS ORDERED: NALOXONE HCL 1 MG/1 ML SYRG IV PRN (07:57)
[2018-05-23] MEDS ORDERED: BUPIVACAINE HCL/PF 30 ML VIAL EP SCH (08:00)
--- NOTE | 2018-05-23 08:09 | ANES ---
Anesthesia Pre Procedure Eval Vitals/Labs: Last Vital Signs Temp 37.0 C 05/23/18 00:14 Pulse 94 05/23/18 00:14 Resp 22 H 05/23/18 00:14 BP 143/80 H 05/23/18 00:14 Pulse Ox 98 05/23/18 00:14 HOME MEDICATIONS vitamin,calcium,dzwzisrw-cghf-lnkov acid tablet 1 tab PO DAILY 11/08/17 [Last Taken Unknown] ferrous sulfate 325 mg (65 mg iron) tablet 325 mg PO DAILY #30 tab 03/06/18 [Last Taken Unknown] ascorbic acid (vitamin C) 500 mg capsule 500 mg PO DAILY cap 03/13/18 [Last Taken Unknown] acetaminophen 325 mg tablet 325 mg PO Q6H PRN 03/27/18 [Last Taken Unknown] calcium carbonate 200 mg calcium (500 mg) chewable tablet 400 mg PO DAILY tab 03/27/18 [Last Taken Unknown] melatonin 10 mg tablet 10 mg PO HS 03/27/18 [Last Taken Unknown] Allergies/Adverse Reactions: Allergies Allergy/AdvReac Type Severity Reaction Status Date / Time No Known Allergies Allergy Verified 05/23/18 00:23 - Planned Procedure Planned Procedure: Labor epidural Medication List Reviewed:: Yes Allergies Verified: Yes Medical History (Last Reviewed 05/23/18 @ 08:08 by Humberto Beyer CRNA) Has received influenza vaccination in current influenza season (Acute) Onset Date: 03/13/18 Cellulitis (Acute) Abscess of gluteal cleft (Acute) Influenza vaccine refused (Acute) Onset Date: 12/06/17 Strep pharyngitis (Acute) Bleeding from the nose (Acute) Common cold (Acute) Constipation (Acute) Strep pharyngitis (Acute) Vomiting (Acute) Crush injury to finger (Acute) Pneumonia (Acute) Sinusitis (Acute) Abscess Onset Date: 01/03/18 Gluteal cleft Anemia Onset Date: 03/06/18 w/ Acne Onset Date: Unknown Anxiety Onset Date: Unknown Depression Onset Date: Unknown MRSA Abscess Onset Date: Unknown Herpes simplex Onset Date: 08/12/12 Surgical History (Last Reviewed 05/23/18 @ 08:08 by Humberto Beyer CRNA) History of excision of pilonidal cyst Onset Date: 04/07/18 Charan History of incision and drainage Onset Date: 03/27/1812/2017 gluteal cleft. 03/27/18 in ER-gluteal cleft History of neck surgery Onset Date: ~2005 Cyst removal Family History (Last Reviewed 05/23/18 @ 08:08 by Humberto Beyer CRNA) Mother Alive and well Father Unknown family medical history Grandfather COPD (chronic obstructive pulmonary disease) Grandmother Cancer Cervical Cancer Diabetes Brain tumor Colostomy in place Complication d/t radiation therapy-Part of intestines killed Status post emergency tracheotomy for assistance in breathing Trachea collapsed d/t sepsis Brother Alive and well 2 brothers - Family Anesthesia History Family History:: no untoward family reactions to anesthesia, no familial bleeding tendencies, no family history of clotting disorders, no family history of premature - Cardiovascular Tolerate Activity: Good Heart Sounds: S1 & S2, Regular - Anesthesia Assessment and Plan ASA Class: PS, II Anesthesia Type Plan: Epidural
[2018-05-23] MEDS: BUPIVACAINE HCL/0.9 % NACL/PF 250 ML EP PRN ×2 (08:39→22:22)
--- NOTE | 2018-05-23 08:41 | ANES ---
Anesthesia Procedure Note Procedure Note: ANESTHESIA PROCEDURE NOTE Date of Procedure: 05/23/2018. Time of procedure: 824. Performed by: Humberto Beyer CRNA Chemical Educator: None. Preprocedure diagnosis: Active labor. Post procedure diagnosis: Same. Procedure: Insertion of labor epidural. Indications: The patient is a 18 -year-old female in active labor requesting labor epidural for pain management. Findings: See below. Details of the procedure: The patient was placed in a sitting position. DuraPrep as well as Betadine swabs X3 was applied to the patient's back. Patient was then draped in a sterile fashion. Lidocaine 1% was infiltrated to the skin and subcutaneous tissues at the level of the L3-4 interspace. The epidural space was identified using a 18-gauge Tuohy needle with [id number] technique. Epidural catheter was inserted to a depth of 12 centimeters at skin. Negative test dose was elicited using 3 mL of 1.5% preservative-free lidocaine plus epinephrine 1 200,000. The epidural catheter was then taped and secured in place. A loading dose of 8 mL of 0.25% preservative-free bupivacaine was administered to the epidural catheter after negative aspiration for blood and CSF. EBL: Minimal. Fluids: N/A. Specimen: N/A. Post procedure condition: The patient tolerated the procedure well. No complications were noted. Thank you for this consultation. Humberto Beyer CRNA
--- NOTE | 2018-05-23 08:41 | ANES ---
Post Anesthesia Assessment - Vital Signs Vitals: Last Vital Signs Temp 37.0 C 05/23/18 00:14 Pulse 94 05/23/18 00:14 Resp 22 H 05/23/18 00:14 BP 143/80 H 05/23/18 00:14 Pulse Ox 98 05/23/18 00:14 Airway Patency: Normal - Mental Status Level Of Consciousness: Awake - N/V Assessment Nausea/Vomiting Presence: None Dehydration:: No
--- NOTE | 2018-05-23 13:02 | PN ---
Progess Note - Interim Date: 05/23/18 Time: 13:01 Narrative: 05/23/18 13:01 Patient comfortable with epidural Vital signs stable. Pitocin at 12 mu/min. FHT: 140 baseline, reassuring Contractions q 2-3 min Cervix: Buckley bulb still in place, approximately 1 cm/90% Impression: Intrauterine at 39 weeks induction of labor for oligohydramnios making slow progress, baby tolerating labor well Plan: Continue present plan
--- NOTE | 2018-05-23 17:37 | PN ---
Progess Note - Interim Date: 05/23/18 Time: 17:35 Narrative: 05/23/18 17:35 Patient comfortable with epidural Vital signs stable. Pitocin off for about 1 hour. FHT:150 baseline, reassuring Contractions mild and irregular Cervix: Ubckley bulb just came out with cervix 1-/-3, AROM-scant fluid clear Impression: Intrauterine at 39 weeks induction of labor for oligohydramnios Plan: Restart Pitocin at 1800 hrs.
[2018-05-24] MEDS ORDERED: RINGER'S SOLUTION,LACTATED 1,000 ML IV ONE (00:50)
[2018-05-24] MEDS: ONDANSETRON HCL/PF 2 MG/ML VIAL IV PRN ×3 (01:58→13:52)
[2018-05-24] MEDS: DEXTROSE 5%-LACTATED RINGERS 1,000 ML IV PRN ×2 (02:56→12:31)
[2018-05-24 03:52] LABS: Hematocrit 32.1 % (37.0-47.0); Hemoglobin 10.5 gm/dL (12.5-16.0); Mean Cell Volume 88.4 fl (78-100); Mean Corpuscular Hemoglobin 28.9 pg (27-31); Mean Corpuscular Hgb Conc 32.7 g/dl (32-36); Mean Platelet Volume 10.3 fl (8-12.5); Neutrophil # 17.6 K/mm3 (1.3-6.0); Neutrophil % 88.1 % (42-75.0); Platelet Count 273 K/mm3 (150-450); Red Blood Count 3.63 M/mm3 (4.2-5.4); Red Cell Distribution Width 13.9 % (11.5-14.0); Total Cells Counted 100; White Blood Count 19.9 K/mm3 (4.0-10.5)
[2018-05-24] MEDS: AMPICILLIN SODIUM 2,000 MG in NORMAL SALINE 100 ML IV SCH ×2 (04:06→09:19)
[2018-05-24 04:23] LABS: Band 3 % (0-2.0); Dohle Bodies 1+; Lymphocyte 5 % (20-51); Monocyte 7 % (0-9); Neutrophil 85 % (42-75); Neutrophil # 16.9 K/mm3 (1.3-6.0); Platelet Estimate Normal (NORMAL); Toxic Granulation 2+
[2018-05-24] MEDS: ACETAMINOPHEN 325 MG TABLET PO PRN ×2 (04:43→10:42)
[2018-05-24] MEDS: VANCOMYCIN HCL 1 GM in DEXTROSE 5 % IN WATER 250 ML IV SCH ×4 (04:44→06:42)
[2018-05-24] MEDS ORDERED: DEXTROSE 5% IV ONE ×2 (05:00)
[2018-05-24] MEDS ORDERED: WATER IV ONE ×2 (05:00)
[2018-05-24] MEDS ORDERED: GENTAMICIN SULFATE IV ONE ×2 (05:00)
--- NOTE | 2018-05-24 07:37 | PN ---
Progess Note - Interim Date: 05/24/18 Time: 07:31 Narrative: 05/24/18 07:31 Patient comfortable with epidural Vital signs stable. Elevated temperature to max 39.5C at 0335 this morning Pitocin off FHT: 160 baseline, reassuring Contractions q 34 min, were not picking up well until intrauterine pressure catheter placed Cervix: 3/80/-2, clear fluid Impression: Intrauterine at 39-1/7 weeks induction of labor for oligohydramnios. Chorioamnionitis - receiving amp gent and Clinda due to previous abscess culture on arm showing resistance to ampicillin and cephalosporins Plan: Continue present plan. Anticipate normal spontaneous vaginal delivery over the next several hours
[2018-05-24] MEDS: BUPIVACAINE HCL/0.9 % NACL/PF 250 ML EP PRN (11:48)
[2018-05-24] MEDS ORDERED: AZITHROMYCIN 500 MG in DEXTROSE 5 % IN WATER 250 ML IV ONE ×2 (13:19)
[2018-05-24] MEDS: RINGER'S SOLUTION,LACTATED 1,000 ML IV ONE (13:27)
[2018-05-24] MEDS ORDERED: OXYTOCIN 20 UNITS in RINGER'S SOLUTION,LACTATED 1,000 ML IV ONE ×2 (14:04→14:06)
[2018-05-24] MEDS ORDERED: RINGER'S SOLUTION,LACTATED 1,000 ML IV PRN (14:06)
--- NOTE | 2018-05-24 14:06 | PN ---
Progess Note - Interim Date: 05/24/18 Time: 13:59 Narrative: 05/24/18 13:59 Patient comfortable with epidural AFVSS FHT 150, min-mod variability, small accels, occasional late decels Cvx 3-4/80/-2, no oil change technician past 4 hours, minimal oil change technician past 12 hours (3 to 3.5) Impression: 39 1/7 wk IUP induction of labor for oligo with failure to descend/dilate, Chorio - s/p Ampicillin and Vancomycin x 2 doses, Gent 24h dosing x 1, Zithromax 500mg x 1 now Plan: r/b/a to primary c/s discussed with patient and family. All questions answered. Will proceed with primary LTCS for arrest of dilation/descent.
--- NOTE | 2018-05-24 14:10 | ANES ---
Anesthesia Pre Procedure Eval Vitals/Labs: Last Vital Signs Temp 37.0 C 05/23/18 00:14 Pulse 94 05/23/18 00:14 Resp 22 H 05/23/18 00:14 BP 143/80 H 05/23/18 00:14 Pulse Ox 98 05/23/18 00:14 HOME MEDICATIONS vitamin,calcium,erlcaucz-gxbj-gyniq acid tablet 1 tab PO DAILY 11/08/17 [Last Taken Unknown] ferrous sulfate 325 mg (65 mg iron) tablet 325 mg PO DAILY #30 tab 03/06/18 [Last Taken Unknown] ascorbic acid (vitamin C) 500 mg capsule 500 mg PO DAILY cap 03/13/18 [Last Taken Unknown] acetaminophen 325 mg tablet 325 mg PO Q6H PRN 03/27/18 [Last Taken Unknown] calcium carbonate 200 mg calcium (500 mg) chewable tablet 400 mg PO DAILY tab 03/27/18 [Last Taken Unknown] melatonin 10 mg tablet 10 mg PO HS 03/27/18 [Last Taken Unknown] Allergies/Adverse Reactions: Allergies Allergy/AdvReac Type Severity Reaction Status Date / Time No Known Allergies Allergy Verified 05/23/18 00:23 - Planned Procedure Planned Procedure: Labor epidural Medical History (Last Reviewed 05/24/18 @ 14:09 by Malik Jeffers CRNA) Has received influenza vaccination in current influenza season (Acute) Onset Date: 03/13/18 Cellulitis (Acute) Abscess of gluteal cleft (Acute) Influenza vaccine refused (Acute) Onset Date: 12/06/17 Strep pharyngitis (Acute) Bleeding from the nose (Acute) Common cold (Acute) Constipation (Acute) Strep pharyngitis (Acute) Vomiting (Acute) Crush injury to finger (Acute) Pneumonia (Acute) Sinusitis (Acute) Abscess Onset Date: 01/03/18 Gluteal cleft Anemia Onset Date: 03/06/18 w/ Acne Onset Date: Unknown Anxiety Onset Date: Unknown Depression Onset Date: Unknown MRSA Abscess Onset Date: Unknown Herpes simplex Onset Date: 08/12/12 Surgical History (Last Reviewed 05/24/18 @ 14:09 by Malik Jeffers CRNA) History of excision of pilonidal cyst Onset Date: 04/07/18 Charan History of incision and drainage Onset Date: 03/27/1812/2017 gluteal cleft. 03/27/18 in ER-gluteal cleft History of neck surgery Onset Date: ~2005 Cyst removal Family History (Last Reviewed 05/24/18 @ 14:09 by Malik Jeffers CRNA) Mother Alive and well Father Unknown family medical history Grandfather COPD (chronic obstructive pulmonary disease) Grandmother Cancer Cervical Cancer Diabetes Brain tumor Colostomy in place Complication d/t radiation therapy-Part of intestines killed Status post emergency tracheotomy for assistance in breathing Trachea collapsed d/t sepsis Brother Alive and well 2 brothers - Family Anesthesia History Family History:: no untoward family reactions to anesthesia, no familial bleeding tendencies, no family history of clotting disorders, no family history of premature - Airway/Neck/Teeth Within Normal Limits:: Yes Teeth Condition: intact Neck Exam: full range of motion Mallampatti Score: 2 Thyromental (T-M) distance: > 6 cm - Respiratory Discussed smoking cessation including day of surgery: No Sleep Apnea currently treated: No Sleep Apnea by current assessment: No Discussed Risks/Treatment of JEROME: No - Cardiovascular Heart Sounds: Regular - Anesthesia Assessment and Plan ASA Class: II, E Anesthesia Type Plan: Epidural Planned difficult intubation/equipment available: No
[2018-05-24] MEDS ORDERED: oxyCODONE HCL/ACETAMINOPHEN 1 TAB TABLET PO PRN (15:40)
[2018-05-24] MEDS ORDERED: ONDANSETRON HCL/PF 2 MG/ML VIAL IV PRN (15:40)
[2018-05-24] MEDS ORDERED: SENNOSIDES 8.6 MG TABLET PO PRN (15:40)
[2018-05-24] MEDS ORDERED: BISACODYL 10 MG SUPP.RECT RC PRN (15:40)
[2018-05-24] MEDS ORDERED: SIMETHICONE 80 MG TAB.CHEW PO PRN (15:40)
--- NOTE | 2018-05-24 15:51 | OR ---
Operative Report - Dictated Report Narrative: Indication: 18-year-old 1 para 0 induced at 39 weeks for oligohydramnios progressed to 3-1/2 cm with no further mold insert changer 12 hour period and developed chorioamnionitis Status: Planned Pre Operative Diagnosis: 39-1/7 week intrauterine , arrest of dilation/descent, chorioamnionitis Post Operative Diagnosis: Same. Procedure Preformed: Primary Low Transverse Section Surgeon: Juanita Felix DO Commercial Producer: OR Staff Anesthesia: Epidural ,TAP block Estimated Blood Loss: 400 mL Urine Output: 200 mL of clear urine Fluids Given: 1000 mL of crystalloid Drains: Scott to gravity Surgical Complications: None Specimens: Placenta to pathology Findings: Female born at 1444 on 05/24/2020 with Apgars 8 and 8, weighing 3150 g born in asynclitic cephalic presentation. Crying on the perineum with right arm cord 1 and moderate stained meconium fluid. Normal uterus, tubes, ovaries. Technique: The patient was taken to the operating room and placed in dorsal supine position with a left lateral tilt. After adequate epidural anesthesia, scott catheter insertion,SCDs placed, and 500 mg of Zithromax intravenously added to regimen of ampicillin, gentamicin, and vancomycin given preoperatively, the abdominal cavity was entered via a modified Vance-Tan incision. Two rolled laps were placed in the pericolic gutters on either side of the uterus. A transverse incision was made in the lower uterine segment and extended laterally and upwardly with digital traction. Extra time was needed to perform the hysterotomy due to no fluid between the uterine wall and head. Moderate meconium-stained fluid was noted upon amniotomy. Because of the way the baby's head had molded was difficult to deliver easily. Therefore a vacuum was applied to vertex. After 2 pop offs due to inadequate seal, sufficient vacuum pressure was obtained to guide the head through the hysterotomy. The rest of the fetus was easily delivered. The cord was clamped and cut and was handed off to awaiting draw furnace tender. The placenta was allowed to deliver spontaneously. The uterus was cleared of clot and debris. Uterine incision was closed with 0 Vicryl using a running stitch. A second imbricating layer was placed. Excellent hemostasis was noted. Rolled laps were removed from the abdominal cavitiy. The peritoneum was closed with a running 3- 0 Monocryl. The same suture was used to approximate the rectus and pyramidalis muscles. The fascia was closed with a running 0 Vicryl. The subcutaneous layer was closed with a running 3-0 Monocryl. The same suture was used to approximate the subdermal layer. The skin was closed with a running 4-0 Monocryl and Dermabond. Sponge, lap, needle, and instrument count were correct x 2. Disposition: The patient was transferred to post anesthesia care unit in good condition History for MU Definition: * The number of deliveries resulting in a live the patient experienced prior to current hospitalization * The previous delivery of live twins or any live multiple gestation is considered one live event. *If primagravida or nulliparous is documented select zero for the number of previous live births. Live Events: 0
--- NOTE | 2018-05-24 15:52 | ANES ---
Anesthesia Procedure Note Procedure Note: ANESTHESIA PROCEDURE NOTE Date of Procedure: 05/24/2018. Time of procedure: 1545. Performed by: Humberto Beyer CRNA Supervisor Pipeline Maintenance: None. Preprocedure diagnosis: Primary . Post procedure diagnosis: Same. Procedure: Bilateral ultrasound-guided transversus abdominis plane block for postop analgesia. Indications: The patient is a 18 -year-old female post section. Findings: See below. Details of the procedure: ChloraPrep was used on the patient's abdomen and the procedure was performed under sterile technique. The right abdominal fascial layer between the internal oblique muscle and the transversus abdominis muscles was identified under ultrasound guidance. A 21-gauge 4 inch block needle was inserted under ultrasound guidance to the target fascial plane. 15 mL's of 0.25% bupivacaine plus epinephrine 1:200,000 was injected after negative aspiration for blood. The needle was removed intact and the procedure was then repeated at the left side. No complications were noted. The images were retained in the hospital medical database . EBL: Minimal. Fluids: N/A. Specimen: N/A. Post procedure condition: The patient tolerated the procedure well. No complications were noted. Thank you for this consultation. Humberto Beyer CRNA
[2018-05-24] MEDS ORDERED: AMPICILLIN SODIUM 2,000 MG in NORMAL SALINE 100 ML IV SCH (16:00)
[2018-05-24] MEDS ORDERED: hydrOXYzine PAMOATE 25 MG CAPSULE PO PRN (16:50)
[2018-05-24] MEDS ORDERED: HYDROmorphone HCL 1 MG/ML DISP.SYRIN IV PRN (17:19)
[2018-05-24] MEDS ORDERED: VANCOMYCIN HCL 1 GM in DEXTROSE 5 % IN WATER 250 ML IV SCH ×2 (18:00)
[2018-05-24] MEDS: oxyCODONE HCL/ACETAMINOPHEN 1 TAB TABLET PO PRN ×2 (19:50→22:57)
[2018-05-24] MEDS: IBUPROFEN 800 MG TABLET PO PRN (19:50)
[2018-05-24] MEDS: DOCUSATE SODIUM 100 MG CAPSULE PO SCH (22:57)
[2018-05-24] MEDS: ENOXAPARIN SODIUM 40 MG/0.4 ML SYRG SC SCH (22:57)
[2018-05-25] MEDS: IBUPROFEN 800 MG TABLET PO PRN ×4 (02:15→23:17)
[2018-05-25] MEDS: oxyCODONE HCL/ACETAMINOPHEN 1 TAB TABLET PO PRN ×5 (02:16→23:16)
--- NOTE | 2018-05-25 07:00 | ANES ---
Post Anesthesia Discharge - Transfer of Care Transfer of Care handoff given to nurse: Yes - Discharge from PACU Discharge from PACU when meets criteria: Yes - Discharge to ASU Discharge to ASU-no complications/pt stable: Yes
--- NOTE | 2018-05-25 07:01 | ANES ---
Post Anesthesia Assessment - Vital Signs Vitals: Last Vital Signs Temp 36.2 C 05/25/18 02:30 Pulse 77 05/25/18 02:30 Resp 18 05/25/18 02:30 BP 133/81 05/25/18 02:30 Pulse Ox 96 05/25/18 02:30 Airway Patency: Normal - Mental Status Level Of Consciousness: Awake - Pain Level Pain Score: 0 - N/V Assessment Nausea/Vomiting Presence: None Dehydration:: No
--- NOTE | 2018-05-25 08:10 | PN ---
Subjective - Date and Time Seen Date: 05/25/18 Time: 08:09 Objective - Vitals Vitals: Last Vital Signs Temp 36.2 C 05/25/18 02:30 Pulse 77 05/25/18 02:30 Resp 18 05/25/18 02:30 BP 133/81 05/25/18 02:30 Pulse Ox 96 05/25/18 02:30 Patient denies complaints. Tolerating regular diet. Ambulating without difficulty. Pain well controlled. Lochia wnl. Abdomen - soft, appropriately tender Incision - clean, dry, intact Uterus - firm, at umbilicus -1 No calf tenderness Impression: Post op day #1 s/p primary section. Chorioamnionitis- resolved Plan: Continue routine post-operative/ care Cauti Physician Documentation - Urinary Catheter Management Urethral (Buckley) Date of Insertion: 05/23/18 Time of Insertion: 09:15 Assessment/Plan - Problems/Diagnosis (1) Oligohydramnios in [place] in third trimester Problem: Acute
[2018-05-25] MEDS: DOCUSATE SODIUM 100 MG CAPSULE PO SCH ×2 (10:09→23:15)
[2018-05-25] MEDS: ENOXAPARIN SODIUM 40 MG/0.4 ML SYRG SC SCH (23:15)
--- NOTE | 2018-05-26 08:49 | PN ---
Subjective - Date and Time Seen Date: 05/26/18 Time: 08:48 Objective - Vitals Vitals: Last Vital Signs Temp 36.8 C 05/26/18 06:51 Pulse 62 05/26/18 06:51 Resp 18 05/26/18 06:51 BP 134/85 05/26/18 06:51 Pulse Ox 96 05/26/18 06:51 Patient denies complaints. Ambulating well. Tolerating regular diet. Pain well controlled. Lochia wnl. Abdomen - soft, appropriately tender Incision - clean, dry, intact Uterus - firm, at umbilicus -2 No calf tenderness Impression: Post op day #2 s/p primary section. Chorioamnionitis- resolved Plan: Continue routine post-operative/ care Cauti Physician Documentation - Urinary Catheter Management Urethral (Bucklye) Date of Insertion: 05/23/18 Time of Insertion: 09:15 Assessment/Plan - Problems/Diagnosis (1) Oligohydramnios in [place] in third trimester Problem: Acute
[2018-05-26] MEDS: oxyCODONE HCL/ACETAMINOPHEN 1 TAB TABLET PO PRN ×2 (10:39→20:17)
[2018-05-26] MEDS: IBUPROFEN 800 MG TABLET PO PRN ×2 (10:39→20:16)
[2018-05-26] MEDS: DOCUSATE SODIUM 100 MG CAPSULE PO SCH ×2 (10:39→20:17)
[2018-05-27] MEDS: ENOXAPARIN SODIUM 40 MG/0.4 ML SYRG SC SCH (00:01)
[2018-05-27] MEDS: oxyCODONE HCL/ACETAMINOPHEN 1 TAB TABLET PO PRN (08:30)
[2018-05-27] MEDS: IBUPROFEN 800 MG TABLET PO PRN (08:31)
[2018-05-27 08:45] VITALS: BP 140/95
[2018-05-27] MEDS: DOCUSATE SODIUM 100 MG CAPSULE PO SCH (09:56)
--- NOTE | 2018-05-27 11:47 | PN ---
Subjective - Date and Time Seen Date: 05/27/18 Time: 11:45 Objective - Vitals Vitals: Last Vital Signs Temp 36.9 C 05/27/18 08:40 Pulse 72 05/27/18 08:40 Resp 16 05/27/18 08:40 BP 140/95 H 05/27/18 08:40 Pulse Ox 96 05/27/18 08:40 Patient complains of increasing anxiety. Ambulating without difficulty. Tolerating regular diet. Pain well controlled. Lochia wnl. Abdomen - soft, appropriately tender Incision - clean, dry, intact Uterus - firm, at umbilicus -3 No calf tenderness Impression: Post op day #3 s/p primary section. Anxiety - history of good relief with Lexapro. hypertension Plan: Routine discharge instructions. Restart Lexapro 10 mg by mouth daily. Preeclampsia precautions. Repeat blood pressure check in office in 1 week. [facility] Physician Documentation - Urinary Catheter Management Urethral ([place]) Date of Insertion: 05/23/18 Time of Insertion: 09:15 Assessment/Plan - Problems/Diagnosis (1) Oligohydramnios in [place] in third trimester Problem: Acute
== END 2018-05-27 12:45 | disposition home or self-care (01) | DRG 786 ==
LOC: OB 00:01 → MS 05-25 11:26
PROVIDERS: ADMIT Obstetrics & Gynecology; ATTEND Obstetrics & Gynecology
CPT/HCPCS: 36415; 59025; 80307; 81001; 85007; 85025; 88307; J2405